=== PATIENT | female | born 1995 | race African-American/Black ===

== ENCOUNTER 2022-10-02 19:18 | Inpatient (IN) | payer MEDICAID ==
[~2022-10-02] VITALS: Ht 167.6 cm; Wt 127.1 kg
[~2022-10-02 19:18] MED LIST: IBUP-2030 MT
[2022-10-02] MEDS ORDERED: CARBOPROST TROMETHAMINE 250 MCG/ML AMPUL IM PRN (21:30)
[2022-10-02] MEDS ORDERED: OXYTOCIN 30 UNITS/500ML NS PMX 500 ML IV SCH (21:30)
[2022-10-02] MEDS ORDERED: NALOXONE HCL 0.4 MG/ML 1ML VIAL IM PRN (21:30)
[2022-10-02] MEDS ORDERED: METHYLERGONOVINE MALEATE 0.2 MG/ML IM PRN (21:30)
[2022-10-02] MEDS ORDERED: MAGNESIUM 4 G PREMIX 100 ML IV NR (21:30)
[2022-10-02] MEDS ORDERED: LABETALOL HCL 5MG/ML VIAL 20ML IV PRN ×3 (21:45)
[2022-10-02] MEDS ORDERED: BETAMETHASONE ACET/BETAMET 30 MG/5 ML VIAL IM ONE (21:45)
[2022-10-02] MEDS ORDERED: HYDRALAZINE 20MG/ML VIAL IV PRN (21:45)
[2022-10-02] MEDS ORDERED: PNV1TABL50 MT (21:47)
[2022-10-02 21:59] LABS: BASOPHILS % 0.8 % (0.0-2.0); EOSINOPHILS % 0.5 % (0.0-5.0); HEMATOCRIT. 30.8 % (36.0-48.0); HEMOGLOBIN. 10.2 g/dL (12.0-16.0); LYMPHOCYTES % 22.1 % (20.0-50.0); MEAN CORPUSCULAR HEMOGLOBIN 28.3 pg (28.0-32.0); MEAN CORPUSCULAR VOLUME 85.8 fL (81.0-99.0); MEAN PLATELET VOLUME 8.3 fl (7.4-10.4); MONOCYTES % 6.1 % (2.0-8.0); NEUTROPHILS % 70.5 % (40.0-76.0); PLATELET 267 x1000/uL (130-400); RED BLOOD CELL COUNT 3.59 mill/uL (4.2-5.4); RED CELL DISTRIBUTION WIDTH 17.3 % (11.6-14.6)
[2022-10-02 22:07] LABS: CHLORIDE 112 mEq/L (98-107)
[2022-10-02 22:07] LABS: CLARITY URINE CLOUDY (CLEAR); COLOR URINE YELLOW (YELLOW); KETONES URINE TRACE (NEGATIVE); LEUKOCYTE ESTERASE URINE 2+ (NEGATIVE); NITRITE URINE NEGATIVE (NEGATIVE); OCCULT BLOOD URINE 3+ (NEGATIVE); PH URINE 6.5 (4.5-8.0); PROTEIN URINE TRACE (NEGATIVE); SPECIFIC GRAVITY URINE 1.038 (1.005-1.030)
[2022-10-02 22:13] LABS: D-DIMER 2.9 mg/L FEU (<0.50); INR 0.9; PARTIAL THROMBOPLASTIN TIME 24.3 sec (23.4-31.0); PROTHROMBIN TIME 9.7 sec (9.6-11.0)
[2022-10-02 22:16] LABS: *BARBITURATES SCREEN URINE NEGATIVE (NEGATIVE); *BENZODIAZEPINES SCREEN URINE NEGATIVE (NEGATIVE); *COCAINE SCREEN URINE NEGATIVE (NEGATIVE); CANNABINOID URINE SCREEN NEGATIVE (NEGATIVE); METHADONE URINE SCREEN NEGATIVE (NEGATIVE); OPIATES URINE SCREEN NEGATIVE (NEGATIVE); PHENCYCLIDINE URINE SCREEN NEGATIVE (NEGATIVE)
[2022-10-02 22:26] LABS: *AMPHETAMINES SCREEN URINE PRESUMTIVE POSITIVE (NEGATIVE)
[2022-10-02] MEDS: LACTATED RINGERS 1,000 ML IV SCH (22:34)
[2022-10-02 22:39] LABS: HEPATITIS B SURFACE ANTIGEN NEGATIVE
[2022-10-02] MEDS: MAGNESIUM 20 G PREMIX (L & D) 500 ML IV SCH (22:43)
[2022-10-03] MEDS: LACTATED RINGERS 1,000 ML IV SCH ×3 (06:22→21:49)
[2022-10-03] MEDS: LABETALOL HCL 100MG TABLET PO SCH (08:52)
[2022-10-03] MEDS ORDERED: NITROFURANTOIN 100MG M/M CAPSULE PO SCH (09:00)
[2022-10-03] MEDS: MAGNESIUM 20 G PREMIX (L & D) 500 ML IV SCH (15:00)
[2022-10-03] MEDS ORDERED: CEFAZOLIN SODIUM 1000MG/VIAL ONE (19:42)
[2022-10-03] MEDS ORDERED: OXYTOCIN 10 UNITS/ML 1ML ONE ×2 (19:42→23:41)
[2022-10-03] MEDS ORDERED: ONDANSETRON HCL 4MG/2ML INJ ONE (19:42)
[2022-10-03] MEDS ORDERED: DIPHENHYDRAMINE 50MG/ML VIAL ONE (19:42)
[2022-10-03] MEDS ORDERED: MORPHINE SULFATE/PF 1MG/ML 10ML AMP ONE (19:43)
[2022-10-03] MEDS ORDERED: FENTANYL CITRATE/PF 50MCG/ML 2ML VIAL ONE (19:43)
[2022-10-03] MEDS ORDERED: EPHEDRINE SULFATE 50MG/ML VIAL ONE (19:43)
[2022-10-03 20:51] LABS: BASOPHILS % 0.1 % (0.0-2.0); HEMATOCRIT. 29.7 % (36.0-48.0); HEMOGLOBIN. 9.7 g/dL (12.0-16.0); LYMPHOCYTES % 10.1 % (20.0-50.0); MEAN CORPUSCULAR HEMOGLOBIN 28.2 pg (28.0-32.0); MEAN CORPUSCULAR VOLUME 86.5 fL (81.0-99.0); MEAN PLATELET VOLUME 7.5 fl (7.4-10.4); MONOCYTES % 4.7 % (2.0-8.0); NEUTROPHILS % 85.1 % (40.0-76.0); PLATELET 299 x1000/uL (130-400); RED BLOOD CELL COUNT 3.43 mill/uL (4.2-5.4); RED CELL DISTRIBUTION WIDTH 17.6 % (11.6-14.6)
[2022-10-03 21:11] LABS: INR 0.9; PARTIAL THROMBOPLASTIN TIME 25.4 sec (23.4-31.0); PROTHROMBIN TIME 9.8 sec (9.6-11.0)
[2022-10-03] MEDS ORDERED: TRANEXAMIC ACID 10 ML ONE (22:57)
[2022-10-03] MEDS ORDERED: PHENYLEPHRINE HCL 10 MG/ML 1ML (IV VIAL) IV ONE ×3 (23:11→23:39)
[2022-10-03] MEDS ORDERED: SODIUM CHLORIDE 0.9% 10ML VIAL ONE (23:11)
[2022-10-03] MEDS ORDERED: LIDOCAINE HCL/PF 1% 10 MG/ML 5ML VIAL ONE (23:17)
[2022-10-04] VITALS (82 sets, daily range): BP systolic 42–197; BP diastolic 16–114
[2022-10-04] MEDS ORDERED: TRANEXAMIC ACID 10 ML ONE (00:14)
[2022-10-04] MEDS ORDERED: ETOMIDATE 2MG/ML 10ML VIAL IV ONE (00:22)
[2022-10-04] MEDS ORDERED: SUCCINYLCHOLINE CHLORIDE 200MG/10ML IV ONE (00:23)
[2022-10-04] MEDS ORDERED: ROCURONIUM BROMIDE 10MG/ML VIAL 5ML IV ONE ×4 (00:29→04:04)
[2022-10-04] MEDS ORDERED: EPINEPHRINE 0.1MG/ML (1:10,000) 10ML SYR ONE (01:22)
[2022-10-04] MEDS ORDERED: MIDAZOLAM HCL 2 MG/2 ML VIAL ONE (01:23)
[2022-10-04] MEDS ORDERED: CEFAZOLIN SODIUM 1000MG/VIAL ONE ×2 (01:49→02:11)
[2022-10-04] MEDS ORDERED: FUROSEMIDE 40MG/4ML VIAL IVP NR (02:00)
[2022-10-04 02:08] LABS: CHLORIDE 122 mEq/L (98-107)
[2022-10-04 02:15] LABS: BASOPHILS % 0.2 % (0.0-2.0); EOSINOPHILS % 0.1 % (0.0-5.0); HEMATOCRIT. 25.6 % (36.0-48.0); LYMPHOCYTES % 7.8 % (20.0-50.0); MEAN CORPUSCULAR HEMOGLOBIN 29.7 pg (28.0-32.0); MEAN CORPUSCULAR VOLUME 95.1 fL (81.0-99.0); MEAN PLATELET VOLUME 8.2 fl (7.4-10.4); MONOCYTES % 3.7 % (2.0-8.0); NEUTROPHILS % 88.2 % (40.0-76.0); PLATELET 79 x1000/uL (130-400); RED CELL DISTRIBUTION WIDTH 15.8 % (11.6-14.6)
[2022-10-04] MEDS ORDERED: SODIUM CHLORIDE 0.9% 10ML VIAL ONE (02:15)
[2022-10-04 02:40] LABS: BG BASE EXCESS -11.8 mmol/L (-2.0-2.0); BG CARBOXYHEMOGLOBIN 0.3 % (0.5-1.5); BG FRACTION INSPIRED OXYGEN 100; BG HCO3 ACT 15.4 mmol/L (22.0-26.0); BG METHEMOGLOBIN 0.3 % (0.0-1.5); BG OXYHEMOGLOBIN 98.4 % (94.0-97.0); BG PCO2 40.2 mmHg (35.0-45.0); BG PH 7.202 (7.350-7.450); BG PO2 583.6 mmHg (75.0-100.0); BG SAMPLE SITE LEFT RADIAL; BG TOTAL HEMOGLOBIN 9.8 g/dL (12.0-18.0); BG VENT MODE VENT - AC
[2022-10-04] MEDS ORDERED: SODIUM BICARBONATE 8.4% 1 MEQ/ML 50ML SYR IV NR ×2 (03:30→04:00)
[2022-10-04] MEDS ORDERED: NOREPINEPHRINE 8MG/250ML PMX 250 ML IV PRN (03:30)
[2022-10-04 03:37] LABS: BASOPHILS % 0.1 % (0.0-2.0); EOSINOPHILS % 0.1 % (0.0-5.0); HEMATOCRIT. 27.2 % (36.0-48.0); HEMOGLOBIN. 8.8 g/dL (12.0-16.0); LYMPHOCYTES % 8.5 % (20.0-50.0); MEAN CORPUSCULAR HEMOGLOBIN 28.6 pg (28.0-32.0); MEAN CORPUSCULAR VOLUME 88.9 fL (81.0-99.0); MEAN PLATELET VOLUME 6.9 fl (7.4-10.4); MONOCYTES % 7.1 % (2.0-8.0); NEUTROPHILS % 84.2 % (40.0-76.0); PLATELET 77 x1000/uL (130-400); RED BLOOD CELL COUNT 3.06 mill/uL (4.2-5.4); RED CELL DISTRIBUTION WIDTH 15.2 % (11.6-14.6)
[2022-10-04 03:46] LABS: CHLORIDE 120 mEq/L (98-107)
[2022-10-04 03:52] LABS: BG CARBOXYHEMOGLOBIN 0.3 % (0.5-1.5); BG DEOXYHEMOGLOBIN 0.6 % (0.0-5.0); BG FRACTION INSPIRED OXYGEN 100; BG METHEMOGLOBIN 0.3 % (0.0-1.5); BG OXYGEN SATURATION 99.4 % (92.0-98.5); BG OXYHEMOGLOBIN 98.8 % (94.0-97.0); BG PCO2 41.5 mmHg (35.0-45.0); BG PH 7.231 (7.350-7.450); BG PO2 562.4 mmHg (75.0-100.0); BG SAMPLE SITE RIGHT FEMORAL; BG TOTAL HEMOGLOBIN 12.1 g/dL (12.0-18.0); BG VENT MODE VENT - AC
[2022-10-04] MEDS ORDERED: INSULIN REGULAR (HUMULIN R) 300UNITS/3ML VIAL IV NR ×2 (04:00→08:15)
[2022-10-04] MEDS ORDERED: DEXTROSE 50% WATER 50ML SYRINGE IV NR ×2 (04:00→08:15)
[2022-10-04] MEDS ORDERED: CALCIUM CHLORIDE 1GM/10ML SYR IV NR (04:00)
[2022-10-04] MEDS ORDERED: NOREPINEPHRINE 8 MG in DEXT 5% WATER 242 ML IV PRN ×2 (04:00→05:15)
[2022-10-04] MEDS ORDERED: DESMOPRESSIN ACETATE IVPB 25 MCG in SODIUM CHLORIDE 0.9% 50 ML IV NR (04:15)
[2022-10-04] MEDS ORDERED: ALBUMIN HUMAN 12.5G/250ML (5%) IV NR (04:45)
[2022-10-04] MEDS ORDERED: PANTOPRAZOLE SODIUM 40 MG/VIAL IV SCH (04:45)
[2022-10-04] MEDS ORDERED: DOPAMINE 400MG/250ML PREMIX 250 ML IV PRN (05:45)
[2022-10-04] MEDS ORDERED: LEVETIRACETAM 1,000 MG in SODIUM CHLORIDE 0.9% 100 ML IV SCH (05:45)
[2022-10-04] MEDS: VASOPRESSIN 20 UNIT in SODIUM CHLORIDE 0.9% 99 ML IV PRN ×2 (05:50→10:10)
[2022-10-04] MEDS ORDERED: PIPERACILLIN/TAZOBACTAM 3.375 G in DEXTROSE 5% WATER 50 ML IV SCH (06:00)
[2022-10-04] MEDS ORDERED: LEVETIRACETAM 1000MG PREMIX 100 ML IV SCH (06:00)
[2022-10-04 06:06] LABS: HEMATOCRIT 40.1 % (36.0-48.0); HEMOGLOBIN 13.6 g/dL (12.0-16.0); MEAN CORPUSCULAR HEMOGLOBIN 29.2 pg (28.0-32.0); MEAN CORPUSCULAR VOLUME 86.2 fL (81.0-99.0); PLATELET 94 x1000/uL (130-400); RED BLOOD CELL COUNT 4.65 mill/uL (4.2-5.4); RED CELL DISTRIBUTION WIDTH 14.2 % (11.6-14.6)
[2022-10-04 06:16] LABS: BASOPHILS % 0.1 % (0.0-2.0); HEMATOCRIT. 39.8 % (36.0-48.0); HEMOGLOBIN. 13.5 g/dL (12.0-16.0); LYMPHOCYTES % 14.7 % (20.0-50.0); MEAN CORPUSCULAR HEMOGLOBIN 29.2 pg (28.0-32.0); MONOCYTES % 8.3 % (2.0-8.0); NEUTROPHILS % 76.9 % (40.0-76.0); PLATELET 97 x1000/uL (130-400); RED BLOOD CELL COUNT 4.63 mill/uL (4.2-5.4); RED CELL DISTRIBUTION WIDTH 14.5 % (11.6-14.6)
[2022-10-04 06:24] LABS: CHLORIDE 119 mEq/L (98-107)
[2022-10-04] MEDS ORDERED: MORPHINE SULFATE 2 MG/ML CPJ (NOT FOR IM USE) IV NR (06:30)
[2022-10-04 06:43] LABS: D-DIMER 6.19 mg/L FEU (<0.50); INR 1.4; PARTIAL THROMBOPLASTIN TIME 35.9 sec (23.4-31.0); PROTHROMBIN TIME 14.9 sec (9.6-11.0)
[2022-10-04] MEDS ORDERED: LACTATED RINGERS 1,000 ML IV SCH (07:00)
[2022-10-04] MEDS ORDERED: ATROPINE SULFATE 1MG/10ML SYR ONE (07:36)
[2022-10-04] MEDS ORDERED: SODIUM BICARBONATE 8.4% 1 MEQ/ML 50ML SYR IV ONE (07:36)
[2022-10-04] MEDS ORDERED: DEXTROSE 50% WATER 50ML SYRINGE IV ONE (07:36)
[2022-10-04 07:39] LABS: BG BASE EXCESS -7.2 mmol/L (-2.0-2.0); BG CARBOXYHEMOGLOBIN 0.3 % (0.5-1.5); BG METHEMOGLOBIN 0.3 % (0.0-1.5); BG OXYHEMOGLOBIN 98.4 % (94.0-97.0); BG PCO2 30.1 mmHg (35.0-45.0); BG PO2 536.1 mmHg (75.0-100.0); BG SAMPLE SITE ALINE; BG TOTAL HEMOGLOBIN 11.1 g/dL (12.0-18.0); BG VENT MODE VENT - AC
[2022-10-04] MEDS ORDERED: LORAZEPAM 2MG/ML CPJ IV PRN (08:15)
[2022-10-04] MEDS ORDERED: FENTANYL CITRATE/PF 2,500 MCG in SODIUM CHLORIDE 0.9% 200 ML IV PRN (08:15)
[2022-10-04] MEDS ORDERED: CALCIUM GLUCONATE 1,000 MG in DEXT 5% WATER 90 ML IV ONE (08:45)
[2022-10-04] MEDS ORDERED: SODIUM POLYSTYRENE SULFONATE 15 G/60 ML BOT PO SCH (09:00)
[2022-10-04 10:01] LABS: HEMATOCRIT 26.9 % (36.0-48.0)
[2022-10-04] MEDS: PANTOPRAZOLE SODIUM 40 MG/VIAL IV SCH (10:09)
[2022-10-04] MEDS: SODIUM CHLORIDE 0.9% 1,000 ML IV SCH (10:09)
[2022-10-04] MEDS: PHENYLEPHRINE 100 MG in DEXT 5% WATER 240 ML IV PRN ×2 (10:10→12:44)
[2022-10-04] MEDS ORDERED: CALCIUM GLUCONATE 1GM PREMIX 50 ML IV NR ×2 (10:30→18:00)
[2022-10-04] MEDS ORDERED: IOHEXOL-350 100 ML BOTTLE ONE (10:45)
[2022-10-04 12:45] LABS: HEMATOCRIT 22.1 % (36.0-48.0); HEMOGLOBIN 7.5 g/dL (12.0-16.0)
[2022-10-04 12:51] LABS: CHLORIDE 116 mEq/L (98-107)
[2022-10-04] MEDS ORDERED: IOHEXOL-300 100 ML BOTTLE ONE (12:52)
[2022-10-04] MEDS ORDERED: LIDOCAINE HCL 1% 10 MG/ML 10ML VIAL ONE (13:32)
[2022-10-04] MEDS ORDERED: IOHEXOL-300 50 ML BOTTLE IV ONE (14:30)
[2022-10-04] MEDS: PIPERACILLIN/TAZOBACTAM 3.375 G in DEXTROSE 5% WATER 50 ML IV SCH ×2 (15:29→22:05)
[2022-10-04 16:09] LABS: BG BASE EXCESS -4.2 mmol/L (-2.0-2.0); BG CARBOXYHEMOGLOBIN 0.2 % (0.5-1.5); BG DEOXYHEMOGLOBIN 1.9 % (0.0-5.0); BG HCO3 ACT 18.6 mmol/L (22.0-26.0); BG METHEMOGLOBIN 0.3 % (0.0-1.5); BG OXYGEN SATURATION 98.1 % (92.0-98.5); BG OXYHEMOGLOBIN 97.6 % (94.0-97.0); BG PCO2 26.7 mmHg (35.0-45.0); BG PH 7.461 (7.350-7.450); BG PO2 139.8 mmHg (75.0-100.0); BG SAMPLE SITE ALINE; BG TOTAL HEMOGLOBIN 9.8 g/dL (12.0-18.0); BG VENT MODE VENT - AC
[2022-10-04 16:17] LABS: INR 1.1; PARTIAL THROMBOPLASTIN TIME 31.6 sec (23.4-31.0)
[2022-10-04 16:19] LABS: CHLORIDE 117 mEq/L (98-107)
[2022-10-04 16:23] LABS: HEMATOCRIT 26.5 % (36.0-48.0); HEMOGLOBIN 9.2 g/dL (12.0-16.0); MEAN CORPUSCULAR HEMOGLOBIN 29.4 pg (28.0-32.0); MEAN CORPUSCULAR VOLUME 84.6 fL (81.0-99.0); PLATELET 99 x1000/uL (130-400); RED BLOOD CELL COUNT 3.13 mill/uL (4.2-5.4); RED CELL DISTRIBUTION WIDTH 14.5 % (11.6-14.6)
[2022-10-04 18:28] LABS: HEMATOCRIT. 27.1 % (36.0-48.0); HEMOGLOBIN. 9.5 g/dL (12.0-16.0); LYMPHOCYTES % 15.5 % (20.0-50.0); MEAN CORPUSCULAR HEMOGLOBIN 29.8 pg (28.0-32.0); MEAN PLATELET VOLUME 7.8 fl (7.4-10.4); MONOCYTES % 8.5 % (2.0-8.0); PLATELET 63 x1000/uL (130-400); RED BLOOD CELL COUNT 3.19 mill/uL (4.2-5.4); RED CELL DISTRIBUTION WIDTH 15.5 % (11.6-14.6)
[2022-10-04 18:35] LABS: PROTHROMBIN TIME 11.2 sec (9.6-11.0)
[2022-10-04] MEDS: LEVETIRACETAM 1000MG PREMIX 100 ML IV SCH (20:48)
[2022-10-04] MEDS: CEFEPIME 1GM PREMIX 50 ML IV SCH (21:49)
[2022-10-05] VITALS (73 sets, daily range): BP systolic -6–198; BP diastolic -7–142
[2022-10-05 01:23] LABS: CHLORIDE 118 mEq/L (98-107)
[2022-10-05] MEDS: SODIUM CHLORIDE 0.9% 1,000 ML IV SCH ×2 (01:52→18:42)
[2022-10-05 02:11] LABS: BASOPHILS % 0.1 % (0.0-2.0); HEMOGLOBIN. 9.2 g/dL (12.0-16.0); LYMPHOCYTES % 11.2 % (20.0-50.0); MEAN CORPUSCULAR HEMOGLOBIN 29.6 pg (28.0-32.0); MEAN PLATELET VOLUME 9.3 fl (7.4-10.4); MONOCYTES % 8.6 % (2.0-8.0); NEUTROPHILS % 80.1 % (40.0-76.0); PLATELET 69 x1000/uL (130-400); RED BLOOD CELL COUNT 3.09 mill/uL (4.2-5.4); RED CELL DISTRIBUTION WIDTH 15.6 % (11.6-14.6)
[2022-10-05 05:20] LABS: BASOPHILS % 0.2 % (0.0-2.0); HEMATOCRIT. 23.9 % (36.0-48.0); HEMOGLOBIN. 8.5 g/dL (12.0-16.0); LYMPHOCYTES % 9.5 % (20.0-50.0); MEAN CORPUSCULAR HEMOGLOBIN 29.5 pg (28.0-32.0); MEAN PLATELET VOLUME 8.8 fl (7.4-10.4); MONOCYTES % 7.5 % (2.0-8.0); NEUTROPHILS % 82.8 % (40.0-76.0); PLATELET 72 x1000/uL (130-400); RED BLOOD CELL COUNT 2.88 mill/uL (4.2-5.4); RED CELL DISTRIBUTION WIDTH 15.6 % (11.6-14.6)
[2022-10-05 05:40] LABS: CHLORIDE 117 mEq/L (98-107)
[2022-10-05 06:00] LABS: PARTIAL THROMBOPLASTIN TIME 25.1 sec (23.4-31.0); PROTHROMBIN TIME 10.3 sec (9.6-11.0)
[2022-10-05] MEDS: PANTOPRAZOLE SODIUM 40 MG/VIAL IV SCH (09:27)
[2022-10-05] MEDS: LEVETIRACETAM 1000MG PREMIX 100 ML IV SCH ×2 (09:28→20:39)
[2022-10-05] MEDS: CEFEPIME 1GM PREMIX 50 ML IV SCH ×2 (09:29→20:39)
[2022-10-05 09:31] LABS: BG BASE EXCESS -1.6 mmol/L (-2.0-2.0); BG CARBOXYHEMOGLOBIN 0.3 % (0.5-1.5); BG DEOXYHEMOGLOBIN 1.7 % (0.0-5.0); BG FRACTION INSPIRED OXYGEN 40; BG HCO3 ACT 21.7 mmol/L (22.0-26.0); BG METHEMOGLOBIN 0.5 % (0.0-1.5); BG OXYGEN SATURATION 98.3 % (92.0-98.5); BG OXYHEMOGLOBIN 97.5 % (94.0-97.0); BG PCO2 31.1 mmHg (35.0-45.0); BG PH 7.462 (7.350-7.450); BG SAMPLE SITE ALINE; BG TOTAL HEMOGLOBIN 8.5 g/dL (12.0-18.0); BG VENT MODE VENT - AC
[2022-10-05 09:34] LABS: BASOPHILS % 0.2 % (0.0-2.0); HEMATOCRIT. 22.8 % (36.0-48.0); HEMOGLOBIN. 7.9 g/dL (12.0-16.0); LYMPHOCYTES % 9.8 % (20.0-50.0); MEAN CORPUSCULAR HEMOGLOBIN 29.1 pg (28.0-32.0); MEAN PLATELET VOLUME 8.6 fl (7.4-10.4); MONOCYTES % 7.6 % (2.0-8.0); NEUTROPHILS % 82.4 % (40.0-76.0); PLATELET 78 x1000/uL (130-400); RED BLOOD CELL COUNT 2.72 mill/uL (4.2-5.4); RED CELL DISTRIBUTION WIDTH 15.9 % (11.6-14.6)
[2022-10-05 10:08] LABS: CHLORIDE 118 mEq/L (98-107)
[2022-10-05 10:12] LABS: PARTIAL THROMBOPLASTIN TIME 27.4 sec (23.4-31.0); PROTHROMBIN TIME 10.3 sec (9.6-11.0)
[2022-10-05 11:44] LABS: BG BASE EXCESS -3.9 mmol/L (-2.0-2.0); BG CARBOXYHEMOGLOBIN 0.1 % (0.5-1.5); BG DEOXYHEMOGLOBIN 2.1 % (0.0-5.0); BG FRACTION INSPIRED OXYGEN 40; BG HCO3 ACT 20.7 mmol/L (22.0-26.0); BG METHEMOGLOBIN 0.7 % (0.0-1.5); BG OXYGEN SATURATION 97.9 % (92.0-98.5); BG OXYHEMOGLOBIN 97.1 % (94.0-97.0); BG PCO2 35.7 mmHg (35.0-45.0); BG PH 7.382 (7.350-7.450); BG PO2 154.8 mmHg (75.0-100.0); BG SAMPLE SITE ALINE; BG TOTAL HEMOGLOBIN 8.8 g/dL (12.0-18.0); BG VENT MODE VENT - CPAP
[2022-10-05 12:36] LABS: HEMATOCRIT. 22.1 % (36.0-48.0); HEMOGLOBIN. 7.5 g/dL (12.0-16.0); LYMPHOCYTES % 10.4 % (20.0-50.0); MEAN CORPUSCULAR HEMOGLOBIN 28.8 pg (28.0-32.0); MEAN CORPUSCULAR VOLUME 84.5 fL (81.0-99.0); MEAN PLATELET VOLUME 9.1 fl (7.4-10.4); MONOCYTES % 7.8 % (2.0-8.0); NEUTROPHILS % 81.8 % (40.0-76.0); PLATELET 80 x1000/uL (130-400); RED BLOOD CELL COUNT 2.61 mill/uL (4.2-5.4)
[2022-10-05 12:40] LABS: INR 0.9; PROTHROMBIN TIME 10.2 sec (9.6-11.0)
[2022-10-05] MEDS ORDERED: NALOXONE HCL 0.4MG/ML VIAL IV PRN (13:00)
[2022-10-05] MEDS: MORPHINE SULFATE 2 MG/ML CPJ (NOT FOR IM USE) IV PRN ×2 (13:49→18:04)
[2022-10-05 19:28] LABS: HEMATOCRIT. 23.1 % (36.0-48.0); LYMPHOCYTES % 7.3 % (20.0-50.0); MEAN CORPUSCULAR HEMOGLOBIN 29.4 pg (28.0-32.0); MEAN CORPUSCULAR VOLUME 85.1 fL (81.0-99.0); MONOCYTES % 6.8 % (2.0-8.0); NEUTROPHILS % 85.9 % (40.0-76.0); PLATELET 80 x1000/uL (130-400); RED BLOOD CELL COUNT 2.71 mill/uL (4.2-5.4); RED CELL DISTRIBUTION WIDTH 15.6 % (11.6-14.6)
[2022-10-05] MEDS: LABETALOL HCL 100MG TABLET PO SCH (20:40)
[2022-10-05] MEDS: HYDROCODONE/ACETAMINOPHEN 10/325MG TABLET PO PRN (22:39)
[2022-10-06] VITALS (76 sets, daily range): BP systolic 86–193; BP diastolic 42–118
[2022-10-06 00:01] LABS: CHLORIDE 116 mEq/L (98-107)
[2022-10-06 06:39] LABS: MEAN CORPUSCULAR HEMOGLOBIN 29.1 pg (28.0-32.0); MEAN CORPUSCULAR VOLUME 85.9 fL (81.0-99.0); MEAN PLATELET VOLUME 8.4 fl (7.4-10.4); PLATELET 100 x1000/uL (130-400); RED BLOOD CELL COUNT 2.23 mill/uL (4.2-5.4); RED CELL DISTRIBUTION WIDTH 15.9 % (11.6-14.6)
[2022-10-06 06:46] LABS: CHLORIDE 117 mEq/L (98-107)
[2022-10-06 06:54] LABS: HEMATOCRIT. 19.1 % (36.0-48.0); HEMOGLOBIN. 6.5 g/dL (12.0-16.0)
[2022-10-06 09:03] LABS: NUCLEATED RED BLOOD CELLS 1 /100 WBC
[2022-10-06 09:04] LABS: PLATELET ESTIMATE DECREASED
[2022-10-06] MEDS: PANTOPRAZOLE SODIUM 40 MG/VIAL IV SCH (09:51)
[2022-10-06] MEDS: LEVETIRACETAM 1000MG PREMIX 100 ML IV SCH ×2 (09:51→21:23)
[2022-10-06] MEDS: CEFEPIME 1GM PREMIX 50 ML IV SCH ×2 (09:51→21:23)
[2022-10-06] MEDS: LABETALOL HCL 100MG TABLET PO SCH ×2 (09:52→21:26)
[2022-10-06] MEDS: SODIUM CHLORIDE 0.9% 1,000 ML IV SCH (10:17)
[2022-10-06] MEDS: FERROUS SULFATE 325MG TABLET PO SCH ×2 (13:59→18:55)
[2022-10-06] MEDS: HYDROCODONE/ACETAMINOPHEN 10/325MG TABLET PO PRN (14:00)
[2022-10-06 18:36] LABS: BASOPHILS % 0.1 % (0.0-2.0); EOSINOPHILS % 0.1 % (0.0-5.0); HEMATOCRIT. 24.2 % (36.0-48.0); HEMOGLOBIN. 8.3 g/dL (12.0-16.0); LYMPHOCYTES % 8.8 % (20.0-50.0); MEAN CORPUSCULAR HEMOGLOBIN 29.9 pg (28.0-32.0); MEAN CORPUSCULAR VOLUME 87.4 fL (81.0-99.0); MEAN PLATELET VOLUME 8.2 fl (7.4-10.4); MONOCYTES % 5.7 % (2.0-8.0); NEUTROPHILS % 85.3 % (40.0-76.0); PLATELET 109 x1000/uL (130-400); RED BLOOD CELL COUNT 2.77 mill/uL (4.2-5.4); RED CELL DISTRIBUTION WIDTH 15.4 % (11.6-14.6)
[2022-10-07] VITALS (13 sets, daily range): BP systolic 126–154; BP diastolic 68–93
[2022-10-07] MEDS: HYDROCODONE/ACETAMINOPHEN 10/325MG TABLET PO PRN ×2 (03:18→09:30)
[2022-10-07] MEDS: SODIUM CHLORIDE 0.9% 1,000 ML IV SCH ×2 (03:21→20:20)
[2022-10-07 05:42] LABS: EOSINOPHILS % 0.2 % (0.0-5.0); HEMATOCRIT. 24.6 % (36.0-48.0); HEMOGLOBIN. 8.3 g/dL (12.0-16.0); LYMPHOCYTES % 9.8 % (20.0-50.0); MEAN CORPUSCULAR HEMOGLOBIN 29.5 pg (28.0-32.0); PLATELET 123 x1000/uL (130-400); RED BLOOD CELL COUNT 2.79 mill/uL (4.2-5.4); RED CELL DISTRIBUTION WIDTH 15.1 % (11.6-14.6)
[2022-10-07 05:49] LABS: CHLORIDE 112 mEq/L (98-107)
[2022-10-07 05:52] LABS: INR 0.9; PROTHROMBIN TIME 10.1 sec (9.6-11.0)
[2022-10-07] MEDS: LEVETIRACETAM 1000MG PREMIX 100 ML IV SCH (09:10)
[2022-10-07] MEDS: LABETALOL HCL 100MG TABLET PO SCH ×2 (09:10→22:15)
[2022-10-07] MEDS: PANTOPRAZOLE SODIUM 40 MG/VIAL IV SCH (09:10)
[2022-10-07] MEDS: FERROUS SULFATE 325MG TABLET PO SCH ×3 (09:10→18:02)
[2022-10-07] MEDS: CEFEPIME 1GM PREMIX 50 ML IV SCH ×2 (09:10→22:17)
[2022-10-07] MEDS: PRENATAL VIT/FE FUMARATE/FA TABLET PO SCH (12:23)
[2022-10-07] MEDS: IBUPROFEN 800MG TABLET PO PRN (19:52)
[2022-10-07] MEDS: LEVETIRACETAM 500MG TABLET PO SCH (21:05)
[2022-10-08] VITALS: BP 167/120
[2022-10-08 04:00] VITALS: BP 160/99
[2022-10-08] MEDS: IBUPROFEN 800MG TABLET PO PRN (06:37)
[2022-10-08] MEDS: SODIUM CHLORIDE 0.9% 1,000 ML IV SCH (06:37)
[2022-10-08] MEDS: FERROUS SULFATE 325MG TABLET PO SCH ×3 (07:10→17:51)
[2022-10-08 08:00] VITALS: BP 153/97
[2022-10-08] MEDS: LABETALOL HCL 100MG TABLET PO SCH ×2 (09:37→20:40)
[2022-10-08] MEDS: LEVETIRACETAM 500MG TABLET PO SCH ×2 (09:37→20:40)
[2022-10-08] MEDS: PANTOPRAZOLE SODIUM 40 MG/VIAL IV SCH (09:37)
[2022-10-08 10:28] LABS: BASOPHILS % 0.1 % (0.0-2.0); EOSINOPHILS % 0.6 % (0.0-5.0); HEMATOCRIT. 25.5 % (36.0-48.0); HEMOGLOBIN. 8.8 g/dL (12.0-16.0); LYMPHOCYTES % 12.3 % (20.0-50.0); MEAN CORPUSCULAR HEMOGLOBIN 30.7 pg (28.0-32.0); MEAN CORPUSCULAR VOLUME 89.1 fL (81.0-99.0); MEAN PLATELET VOLUME 7.9 fl (7.4-10.4); MONOCYTES % 6.6 % (2.0-8.0); NEUTROPHILS % 80.4 % (40.0-76.0); PLATELET 174 x1000/uL (130-400); RED BLOOD CELL COUNT 2.87 mill/uL (4.2-5.4)
[2022-10-08 11:14] LABS: CHLORIDE 114 mEq/L (98-107)
[2022-10-08] MEDS: CEFEPIME 1GM PREMIX 50 ML IV SCH ×2 (11:35→22:06)
[2022-10-08] MEDS: PRENATAL VIT/FE FUMARATE/FA TABLET PO SCH (11:35)
[2022-10-08 12:00] VITALS: BP 146/89
[2022-10-08 16:00] VITALS: BP 154/84
[2022-10-08 20:00] VITALS: BP 133/79
[2022-10-08] MEDS: HYDROCODONE/ACETAMINOPHEN 10/325MG TABLET PO PRN (20:41)
[2022-10-09] VITALS: BP 133/80
[2022-10-09] MEDS: HYDROCODONE/ACETAMINOPHEN 10/325MG TABLET PO PRN ×3 (01:36→10:39)
[2022-10-09 04:00] VITALS: BP 140/90
[2022-10-09] MEDS: SODIUM CHLORIDE 0.9% 1,000 ML IV SCH (05:48)
[2022-10-09] MEDS: FERROUS SULFATE 325MG TABLET PO SCH ×3 (05:50→17:10)
[2022-10-09 08:00] VITALS: BP 138/75
[2022-10-09] MEDS: PANTOPRAZOLE SODIUM 40 MG/VIAL IV SCH (09:39)
[2022-10-09] MEDS: CEFEPIME 1GM PREMIX 50 ML IV SCH (09:40)
[2022-10-09] MEDS: LABETALOL HCL 100MG TABLET PO SCH (09:40)
[2022-10-09] MEDS: PRENATAL VIT/FE FUMARATE/FA TABLET PO SCH (09:40)
[2022-10-09] MEDS: LEVETIRACETAM 500MG TABLET PO SCH (09:40)
[2022-10-09 11:44] VITALS: BP 138/75
[2022-10-09 12:00] VITALS: BP 133/88
[2022-10-09] MEDS: IBUPROFEN 800MG TABLET PO PRN (14:57)
[2022-10-09 17:54] LABS: BASOPHILS % 0.4 % (0.0-2.0); EOSINOPHILS % 0.7 % (0.0-5.0); HEMATOCRIT. 31.1 % (36.0-48.0); HEMOGLOBIN. 10.1 g/dL (12.0-16.0); LYMPHOCYTES % 10.6 % (20.0-50.0); MEAN CORPUSCULAR HEMOGLOBIN 30.6 pg (28.0-32.0); MEAN CORPUSCULAR VOLUME 93.7 fL (81.0-99.0); MONOCYTES % 8.6 % (2.0-8.0); NEUTROPHILS % 79.7 % (40.0-76.0); PLATELET 187 x1000/uL (130-400); RED BLOOD CELL COUNT 3.32 mill/uL (4.2-5.4); RED CELL DISTRIBUTION WIDTH 15.4 % (11.6-14.6)
[2022-10-09 17:58] LABS: CHLORIDE 112 mEq/L (98-107)
[2022-10-14 14:08] LABS: AMPHETAMINE CONF URINE Positive (.)
== END 2022-10-09 19:52 | disposition home health service (06) | DRG 540 ==
LOC: OBSVTOIN 19:18 → 8 EST LDRP 19:18 → CVICU 10-04 05:38 → 7EST 10-07 12:50
PROVIDERS: ADMIT Obstetrics & Gynecology; ATTEND Obstetrics & Gynecology
PROC: 30233N1 Transfusion of Nonautologous Red Blood Cells into Peripheral Vein, Percutaneous Approach (ICD-10-PCS; 2022-10-03)
PROC: 10D00Z1 Extraction of Products of Conception, Low, Open Approach (ICD-10-PCS; principal; 2022-10-04)
PROC: 0UT90ZZ Resection of Uterus, Open Approach (ICD-10-PCS; 2022-10-04)
PROC: 30233K1 Transfusion of Nonautologous Frozen Plasma into Peripheral Vein, Percutaneous Approach (ICD-10-PCS; 2022-10-04)
PROC: 30233R1 Transfusion of Nonautologous Platelets into Peripheral Vein, Percutaneous Approach (ICD-10-PCS; 2022-10-04)
PROC: 5A12012 Performance of Cardiac Output, Single, Manual (ICD-10-PCS; 2022-10-04)
PROC: 5A1945Z Respiratory Ventilation, 24-96 Consecutive Hours (ICD-10-PCS; 2022-10-04)
PROC: 04LF3DZ Occlusion of Left Internal Iliac Artery with Intraluminal Device, Percutaneous Approach (ICD-10-PCS; 2022-10-05)
PROC: 04LE3DZ Occlusion of Right Internal Iliac Artery with Intraluminal Device, Percutaneous Approach (ICD-10-PCS; 2022-10-05)
DX: O99.324 Drug use complicating childbirth (principal); J96.00 Acute respiratory failure, unspecified whether with hypoxia or hypercapnia; A41.9 Sepsis, unspecified organism; E43 Unspecified severe protein-calorie malnutrition; O75.3 Other infection during labor; O75.1 Shock during or following labor and delivery; R65.21 Severe sepsis with septic shock; G93.40 Encephalopathy, unspecified; D61.818 Other pancytopenia; D68.9 Coagulation defect, unspecified; O41.03X0 Oligohydramnios, third trimester, not applicable or unspecified; O71.03 Rupture of uterus before onset of labor, third trimester; O67.9 Intrapartum hemorrhage, unspecified; O16.4 Unspecified maternal hypertension, complicating childbirth; F19.10 Other psychoactive substance abuse, uncomplicated; F15.10 Other stimulant abuse, uncomplicated; O99.12 Other diseases of the blood and blood-forming organs and certain disorders involving the immune mechanism complicating childbirth; O25.2 Malnutrition in childbirth; O34.211 Maternal care for low transverse scar from previous cesarean delivery; O99.42 Diseases of the circulatory system complicating childbirth; O99.284 Endocrine, nutritional and metabolic diseases complicating childbirth; O99.354 Diseases of the nervous system complicating childbirth; Z20.822 Contact with and (suspected) exposure to COVID-19; O99.02 Anemia complicating childbirth; N39.0 Urinary tract infection, site not specified; E87.5 Hyperkalemia; Z3A.37 37 weeks gestation of pregnancy; Z78.1 Physical restraint status; Z37.0 Single live birth; Z83.3 Family history of diabetes mellitus
CPT/HCPCS: 36415; 36600; 71045; 72170; 74174; 75736; 75898; 76700; 76805; 76818; 76856; 80048; 80053; 80305; 80359; 81003; 82330; 82375; 82805; 82962; 83615; 83735; 84484; 84550; 85014; 85018; 85025; 85027; 85379; 85384; 86592; 86703; 86762; 86850; 86900; 86920; 86927; 87070; 87340; 87426; 88307; 92950; 93005; 93306; 93970; 94002; 94003; 97161; 97165; 99281; C1725; C1726; C1760; C1766; C9113; G0378; J0330; J0360; J0461; J0610; J0690; J0692; J0702; J1200; J1644; J1815; J1940; J1953; J2060; J2250; J2270; J2274; J2370; J2405; J2543; J2597; J3010; J3475; J3490; J7030; J7050; J7060; J7120; P9012; P9016; P9017; P9034; P9041; Q9967; A4315; J2590